=== PATIENT | male | born 1945 ===

== ENCOUNTER 2018-02-06 10:40 | Outpatient (CLI) | payer OTHER | END 2018-02-06 15:00 | disposition home or self-care (01) | LOC: RAD 10:40 | DX: M25.511 Pain in right shoulder (principal) ==

== ENCOUNTER 2018-07-17 09:46 | Outpatient (CLI) | payer OTHER | END 2018-07-17 14:49 | disposition home or self-care (01) | LOC: TOM 09:46 | DX: R51 Headache (principal) ==

== ENCOUNTER 2018-09-02 14:40 | Outpatient (CLI) | payer OTHER | END 2018-09-02 15:08 | disposition home or self-care (01) | LOC: LAB 14:40 | DX: I72.8 Aneurysm of other specified arteries (principal); Z51.81 Encounter for therapeutic drug level monitoring ==

== ENCOUNTER → 2018-09-09 | Outpatient (CLI) | payer OTHER | END | disposition home or self-care (01) | LOC: MRI 09:09 | DX: I72.0 Aneurysm of carotid artery (principal) | CPT/HCPCS: 70544 ==

== ENCOUNTER 2019-06-06 07:35 | Outpatient (CLI) | payer OTHER | END 2019-06-06 07:46 | disposition home or self-care (01) | LOC: LAB 07:35 | DX: R10.13 Epigastric pain (principal) ==

== ENCOUNTER 2019-06-06 08:14 | Outpatient (CLI) | payer OTHER | END 2019-06-06 08:19 | disposition home or self-care (01) | LOC: SONOGRAMA 08:14 | DX: R10.13 Epigastric pain (principal) ==

== ENCOUNTER 2019-08-21 08:00 | Outpatient (CLI) | payer OTHER | END 2019-08-21 08:03 | disposition home or self-care (01) | LOC: TOM 08:00 | DX: R10.13 Epigastric pain (principal) ==

== ENCOUNTER 2019-12-08 09:29 | Outpatient (CLI) | payer OTHER | END 2019-12-08 09:40 | disposition home or self-care (01) | LOC: NUCLEAR 09:29 | DX: I70.213 Atherosclerosis of native arteries of extremities with intermittent claudication, bilateral legs (principal) ==

== ENCOUNTER 2021-01-18 09:36 | Outpatient (CLI) | payer OTHER | END 2021-01-18 09:42 | disposition home or self-care (01) | LOC: RAD 09:36 → MAMO-SONO 10:00 | PROVIDERS: ATTEND Internal Medicine | DX: M54.5 Low back pain (principal); M19.90 Unspecified osteoarthritis, unspecified site; R10.84 Generalized abdominal pain ==

== ENCOUNTER 2021-02-07 10:29 | Outpatient (CLI) | payer OTHER | END 2021-02-07 10:43 | disposition home or self-care (01) | LOC: TOM 10:29 | PROVIDERS: ATTEND Internal Medicine | DX: M54.5 Low back pain (principal) ==

== ENCOUNTER 2022-02-03 12:41 | Outpatient (CLI) | payer OTHER | END 2022-02-03 12:51 | disposition home or self-care (01) | LOC: MRI 12:41 | DX: M54.16 Radiculopathy, lumbar region (principal); M54.59 Other low back pain | CPT/HCPCS: 72148 ==

== ENCOUNTER 2022-04-18 10:21 | Outpatient (CLI) | payer OTHER | END 2022-04-18 10:28 | disposition home or self-care (01) | LOC: SONOGRAMA 10:21 | PROVIDERS: ATTEND Internal Medicine | DX: M25.511 Pain in right shoulder (principal); M47.812 Spondylosis without myelopathy or radiculopathy, cervical region; M19.90 Unspecified osteoarthritis, unspecified site ==

== ENCOUNTER 2022-04-25 10:38 | Outpatient (CLI) | payer OTHER | END 2022-04-25 10:48 | disposition home or self-care (01) | LOC: RAD 10:38 | PROVIDERS: ATTEND Orthopaedic Surgery Sports Medicine | DX: M75.51 Bursitis of right shoulder (principal) ==

== ENCOUNTER 2022-05-23 07:54 | Outpatient (CLI) | payer OTHER | END 2022-05-23 07:59 | disposition home or self-care (01) | LOC: MRI 07:54 | PROVIDERS: ATTEND Orthopaedic Surgery | DX: M75.51 Bursitis of right shoulder (principal) | CPT/HCPCS: 73221 ==